=== PATIENT | female | born 1975 ===

== ENCOUNTER 2022-12-07 09:06 | Inpatient (IN) | payer OTHER ==
[~2022-12-07] VITALS: Ht 167.6 cm; Wt 90.7 kg
[2022-12-07 10:18] LABS: PH,URINE 5.5 (5.0-8.0); URINE APPEARANCE Clear; URINE BILIRRUBIN Negative (NEGATIVE); URINE BLOOD Negative; URINE COLOR Yellow; URINE GLUCOSE Negative (NEGATIVE); URINE LEUKOCYTE Negative; URINE NITRATE Negative; URINE PROTEIN 30 (NEGATIVE); URINE UROBILINOGEN 0.2 E.U./dl
[2022-12-07 10:23] LABS: URINE BACTERIA 1361.9 uL (0.0-1933); URINE EPITHELIAL CELLS 49.6 uL (0.0-38.8); URINE RBC 2.2 uL (0.0-20.8); URINE WBC 11.2 uL (0.0-23.2)
[2022-12-07 10:24] LABS: HEMATOCRIT 37.6 % (36.0-45.00); HEMOGLOBIN 11.8 g/dL (12.0-15.00); MEAN CORPUSCULAR HEMOGLOBIN 21.7 pg (27.00-32.0); MEAN CORPUSCULAR HGB CONC 31.4 g/dl (32.0-36.0); PLATELET COUNT 406 K/uL (150-450); RED BLOOD COUNT 5.43 M/uL (4.00-6.00); RED CELL DISTRIBUTION WIDTH 16.2 % (11.5-14.5)
[2022-12-07 10:25] LABS: MEAN CELL VOLUME 69.4 fL (80.00-100.00)
[2022-12-07 10:55] LABS: INR 1.04; PARTIAL THROMBOPLASTIN TIME 28.5 SECONDS (22.0-34.0); PROTHROMBIN TIME 10.9 SECONDS (9.0-11.5)
[2022-12-07 10:56] LABS: ALBUMIN 4.3 gm/dL (3.4-5.0); BILIRUBIN TOTAL 0.42 mg/dL (0.3-1.2); CALCIUM 9.2 mg/dL (8.5-10.1); CREATININE SERUM 0.54 mg/dL (0.55-1.02); GFR 121.54; GLOBULINA 3.7 G/DL (2.4-3.5); POTASSIUM 3.97 mEq/L (3.5-5.1)
[2022-12-07] MEDS ORDERED: PEPCID AC10 MG PO (11:28)
[2022-12-07] MEDS ORDERED: OMEPRAZOLE20 MG PO (11:29)
== END 2022-12-14 13:09 | DRG 743 ==
LOC: O/R 12-12 05:05 → OB/GYN 12-12 07:00
PROVIDERS: ADMIT Obstetrics & Gynecology; ATTEND Obstetrics & Gynecology
PROC: 0UT70ZZ Resection of Bilateral Fallopian Tubes, Open Approach (ICD-10-PCS; 2022-12-12)
PROC: 0UT20ZZ Resection of Bilateral Ovaries, Open Approach (ICD-10-PCS; 2022-12-12)
PROC: 0DNW0ZZ Release Peritoneum, Open Approach (ICD-10-PCS; 2022-12-12)
PROC: 0UN20ZZ Release Bilateral Ovaries, Open Approach (ICD-10-PCS; 2022-12-12)
PROC: 0UT90ZZ Resection of Uterus, Open Approach (ICD-10-PCS; principal; 2022-12-12 07:00)
DX: D25.9 Leiomyoma of uterus, unspecified (principal); N80.03 Adenomyosis of the uterus; Z20.822 Contact with and (suspected) exposure to COVID-19; N73.6 Female pelvic peritoneal adhesions (postinfective)